=== PATIENT | female | born 1950 | race Caucasian/White ===

== ENCOUNTER 2021-02-08 15:38 | Emergency (ER) | payer MEDICARE, OTHER ==
[2021-02-08 16:07] VITALS: TEMP 97.5
[2021-02-08] MEDS ORDERED: IBUPROFEN 400 MG TAB PO STA ×2 (16:47→17:31)
[2021-02-08] MEDS ORDERED: IBUPROFEN 600 MG TAB PO STA (17:28)
[2021-02-08 17:36] VITALS: RESP 16
[2021-02-08 17:42] LABS: INR 1.1 (<1.2); Partial Thromboplastin Time 24.3 sec (22.0-30.0); Prothrombin Time 11.4 sec (9.0-12.0)
--- NOTE | 2021-02-08 17:45 | ED ---
Chest Pain HPI - General Chief Complaint: Back Pain/Injury Stated Complaint: chest pain Source: patient, EMS Mode of arrival: EMS Limitations: no limitations - History of Present Illness Initial Comments: 70-year-old female presents to the emergency department after she was complaining of chest pain and back pain while getting dialysis. Daughter is at bedside and provides the history. She states that her mother has a significant history of dementia. She has dialysis Thursday, Thursday and Fridays. Patient will frequently complain of diffuse body aches while receiving her dialysis. They have been attempting to adjust the patient's dialysis treatments in order to make her pain was severe. Today they were going to attempt to take less fluid off of the patient. The patient got 10 minutes into her session and began complaining of back pain and chest pain. They transferred the patient to the hospital because of these complaints. Daughter states that the patient has been suffering from some low pressure. She does take medications for hypertension. She was instructed to only take half doses at this time and no blood pressure medications on the day that she receives dialysis. Patient does not take any blood pressure medications today. If she does come in to the emergency department with low oxygen saturation, 84% on room air as well as blood pressure reading of 93/55. Patient has no complaints at this time other than her low back pain. She is requesting ibuprofen. Patient does have a history of IA with stent placement in 2008. No fevers, chills or cough. Remainder of HPI is limited due to the patient's advanced dementia - Related Data Home Medications Medication Instructions Recorded Confirmed Aspirin EC [Ecotrin Low Dose] 81 mg PO DAILY 02/08/21 02/08/21 Atorvastatin Calcium [Lipitor] 10 mg PO DAILY 02/08/21 02/08/21 Carvedilol [Coreg] 6.25 mg PO BID 02/08/21 02/08/21 Clopidogrel [Plavix] 75 mg PO DAILY 02/08/21 02/08/21 Donepezil HCl [Aricept] 10 mg PO DAILY 02/08/21 02/08/21 INSULIN LISPRO (HumaLOG) [humaLOG] See Protocol SQ TID-W/MEALS 02/08/21 02/08/21 Insulin Glargine [Lantus Vial] 14 unit SQ HS 02/08/21 02/08/21 Levothyroxine Sodium [Synthroid] 100 mcg PO DAILY 02/08/21 02/08/21 Memantine [Namenda] 10 mg PO BID 02/08/21 02/08/21 Phoslyra 667 Mg/5 Ml Solution 1,334 mg PO TID-W/MEALS 02/08/21 02/08/21 Aide-Sheldon 1 tab PO DAILY 02/08/21 02/08/21 Sevelamer Carbonate 1 packet PO TID-W/MEALS 02/08/21 02/08/21 amLODIPine [Norvasc] 10 mg PO DAILY 02/08/21 02/08/21 lisinopriL 40 mg PO DAILY 02/08/21 02/08/21 Allergies Allergy/AdvReac Type Severity Reaction Status Date / Time Penicillins Allergy Rash/Hives Verified 02/08/21 17:43 Review of Systems ROS Statement: Those systems with pertinent positive or pertinent negative responses have been documented in the HPI. ROS Other: All systems not noted in ROS Statement are negative. EKG Findings - EKG Comments: EKG Findings:: EKG demonstrates sinus rhythm with occasional PVCs. Rate of 81. MD interval 190. QRS 86. QTC 448. Baseline artifact. No acute ST segment elevations Past Medical History Past Medical History: Dementia, Diabetes Mellitus, Dialysis, Hyperlipidemia, Hypertension, Myocardial Infarction ([place]), Thyroid Disorder Additional Past Medical History / Comment(s): UTI, Mon, Wed, Thu Dialysis, [place] in 1993, heart murmur, DM type 2, hypothyroidism, End stage renal failure History of Any Multi-Drug Resistant Organisms: None Reported Past Surgical History: Appendectomy, Cholecystectomy, Heart Catheterization With Stent, Tubal Ligation Additional Past Surgical History / Comment(s): last stent 2008, carpal tunal x2, loop recorder Past Psychological History: Anxiety Smoking Status: Never smoker Past Alcohol Use History: None Reported Past Drug Use History: None Reported General Exam Limitations: no limitations Course Vital Signs 02/08/21 02/08/21 02/08/21 15:53 16:08 16:56 Temperature 97.5 F L Pulse Rate 87 84 Respiratory 18 18 Rate Blood Pressure 93/55 104/67 O2 Sat by Pulse 84 L 97 97 Oximetry 02/08/21 02/08/21 17:34 20:08 Temperature Pulse Rate 86 81 Respiratory 16 16 Rate Blood Pressure 107/57 109/58 O2 Sat by Pulse 98 84 L Oximetry Chest Pain MDM - MDM Upon arrival patient was placed into room 25. A thorough history and physical exam was performed. Patient is requesting ibuprofen for she is given 600 mg dose. I did request laboratory studies and a chest x-ray because of the patient's hypoxia. Laboratory studies reveal a creatinine of 4.07. Troponin is 0.738. BNP 235,000. Chest x-ray does demonstrate left and mild right effusion with adjacent atelectasis/airspace disease. Interstitial edema. I did discuss the diagnosis, differential and treatment options. I did recommend hospitalization for nephrology consultation and cardiology consultation. Daughter states that she would like to take her mother home at this time. States that due to her history of advanced dementia she does not tolerate hospitalization. I discussed the risks of leaving including permanent disability and because of elevated cardiac enzyme. Daughter is aware of these risks and is the POA for the patient. The patient does still make some urine. I recommended giving her 60 mg of Lasix IV for diuresis. They must follow-up with dialysis and have dialysis completed tomorrow as the patient did miss her session today. Daughter states that she works closely with the dialysis nurse and does believe that this would be feasible. I instructed her that if she has any new or worsening symptoms or they do agree to be hospitalized that they need to return to the emergency room. Daughter agreed to this plan of patient was discharged home in stable condition Disposition Clinical Impression: Hypoxia, Back pain, ESRD (end stage renal disease) on dialysis, Pulmonary edema Disposition: HOME SELF-CARE Condition: Stable Instructions (If sedation given, give patient instructions): Pulmonary Edema (ED) Additional Instructions: Please call the dialysis center and arranged to have your dialysis done tomorrow. If you have any difficulties, please return to the emergency department. Take the urine sample in to get tested for UTI. Return to the ED for any new or worsening symptoms. Is patient prescribed a controlled substance at d/c from ED?: No Referrals: Chantale Hudson MD [Primary Care Provider] - 1-2 days Nancy Duffy MD [STAFF PHYSICIAN] - 1-2 days Time of Disposition: 19:38
[2021-02-08 17:47] LABS: Albumin 3.8 g/dL (3.5-5.0); Calcium 8.9 mg/dL (8.4-10.2); Magnesium 2.2 mg/dL (1.6-2.3); Phosphorus 3.2 mg/dL (2.5-4.5); Potassium 3.8 mmol/L (3.5-5.1); Total Bilirubin 0.8 mg/dL (0.2-1.3); Total Protein 6.4 g/dL (6.3-8.2)
[2021-02-08 17:55] LABS: Basophils % (A) 0 %; Eosinophils # (A) 0.1 k/uL (0-0.7); Eosinophils % (A) 1 %; HCT 33.9 % (34.0-46.0); HGB 11.1 gm/dL (11.4-16.0); Lymphocytes # (A) 0.6 k/uL (1.0-4.8); Lymphocytes % (A) 6 %; MCH 34.6 pg (25.0-35.0); MCHC 32.9 g/dL (31.0-37.0); MCV 105.4 fL (80.0-100.0); Macrocytosis Moderate; Monocytes # (A) 0.3 k/uL (0-1.0); Monocytes % (A) 3 %; Neutrophils # (A) 8.9 k/uL (1.3-7.7); Neutrophils % (A) 90 %; Platelet Count 185 k/uL (150-450); Poikilocytosis Slight; RBC 3.21 m/uL (3.80-5.40); RDW 15.5 % (11.5-15.5); WBC 9.9 k/uL (3.8-10.6)
--- NOTE | 2021-02-08 18:38 | XR ---
EXAMINATION TYPE: XR chest 2V DATE OF EXAM: 02/08/2021 COMPARISON: NONE HISTORY: Shortness of breath TECHNIQUE: Frontal and lateral views of the chest are obtained. FINDINGS: The cardiomediastinal silhouette is partially obscured. Loop recorder device. The pulmonary vasculatu re is indistinct. There is increased interstitial opacity bilaterally. There is moderate left and mild right effusion with adjacent atelectasis/airspace disease. IMPRESSION: Left and mild right effusion with adjacent atelectasis/airspace disease. Interstitial ed [place].
[2021-02-08] MEDS ORDERED: FUROSEMIDE 10 MG/ML 4 ML VIAL IV STA (19:36)
[2021-02-08 20:09] VITALS: BP 109/58; PULSE 81
== END 2021-02-08 20:05 | disposition home or self-care (01) ==
LOC: EC 15:38
DX: R09.02 Hypoxemia (principal); M54.9 Dorsalgia, unspecified; E11.22 Type 2 diabetes mellitus with diabetic chronic kidney disease; I12.0 Hypertensive chronic kidney disease with stage 5 chronic kidney disease or end stage renal disease; N18.6 End stage renal disease; J81.1 Chronic pulmonary edema; E78.5 Hyperlipidemia, unspecified; I25.2 Old myocardial infarction; E03.9 Hypothyroidism, unspecified; F41.9 Anxiety disorder, unspecified; Z79.82 Long term (current) use of aspirin; Z99.2 Dependence on renal dialysis; Z79.4 Long term (current) use of insulin; Z79.899 Other long term (current) drug therapy
CPT/HCPCS: 36415; 93005; 83880; 80053; 82550; 83605; 83735; 84100; 84484; 85025; 85610; 85730; 71046; 99285; 96374; J1940

== ENCOUNTER 2021-02-09 03:02 | Emergency (ER) | payer MEDICARE, OTHER ==
[2021-02-09 03:10] VITALS: TEMP 98.3
[2021-02-09 04:17] LABS: Basophils % (A) 0 %; Eosinophils # (A) 0.1 k/uL (0-0.7); Eosinophils % (A) 1 %; HCT 34.8 % (34.0-46.0); HGB 10.8 gm/dL (11.4-16.0); Hypochromasia Moderate; Lymphocytes # (A) 0.5 k/uL (1.0-4.8); Lymphocytes % (A) 6 %; MCH 34.2 pg (25.0-35.0); MCHC 31.2 g/dL (31.0-37.0); MCV 109.7 fL (80.0-100.0); Macrocytosis Marked; Mean Platelet Volume 8.7; Monocytes # (A) 0.3 k/uL (0-1.0); Monocytes % (A) 4 %; Neutrophils # (A) 7.6 k/uL (1.3-7.7); Neutrophils % (A) 88 %; Platelet Count 146 k/uL (150-450); Poikilocytosis Slight; RBC 3.17 m/uL (3.80-5.40); WBC 8.6 k/uL (3.8-10.6)
[2021-02-09 04:45] LABS: INR 1.1 (<1.2); Partial Thromboplastin Time 26.6 sec (22.0-30.0); Prothrombin Time 11.8 sec (9.0-12.0)
--- NOTE | 2021-02-09 04:49 | XR ---
EXAMINATION TYPE: XR chest 1V portable DATE OF EXAM: 02/09/2021 COMPARISON: Yesterday HISTORY: Short of breath TECHNIQUE: Single view FINDINGS: There is moderate pulmonary airspace edema. There is blunting of the costophrenic angles. T here are chest leads. Thoracic aorta is atheromatous. Heart appears enlarged. IMPRESSION: Congestive heart failure with pulmonary edema and pleural fluid. Pulmonary edema appears slightly worse than yesterday.
[2021-02-09 05:03] VITALS: RESP 18
[2021-02-09] MEDS ORDERED: MORPHINE SULFATE 4 MG/ML SYRINGE IV STA (05:32)
[2021-02-09 06:19] LABS: Albumin 3.7 g/dL (3.5-5.0); Calcium 8.7 mg/dL (8.4-10.2); Potassium 4.1 mmol/L (3.5-5.1); Total Bilirubin 0.7 mg/dL (0.2-1.3); Total Protein 6.2 g/dL (6.3-8.2)
[2021-02-09] MEDS ORDERED: ACETAMINOPHEN TAB 325 MG TAB PO PRN (07:03)
[2021-02-09] MEDS ORDERED: NALOXONE 0.4 MG/ML 1 ML VIAL IV PRN (07:03)
[2021-02-09 07:17] VITALS: BP 101/62; PULSE 67
--- NOTE | 2021-02-09 08:11 | ED ---
Dizziness HPI - General Chief Complaint: Syncope Stated Complaint: UMESH Time Seen by Provider: 02/09/21 03:37 Source: patient, family Mode of arrival: wheelchair Limitations: altered mental status - History of Present Illness Initial Comments: This patient is a 70-year-old woman who is brought to have evaluation for shortness of breath. Please note that while the patient was being triaged she appears to have had a brief syncopal episode. The history is supplemented by the patient's family and it appears that the patient has been having difficulty with her last 2 dialysis sessions. The patient reportedly develops severe cramping or spasms shortly after being started on dialysis. At the session today the session was terminated after number of minutes due to these cramps or spasms. The prior session 2 days previous had apparently been stopped at about assisted through the session for the same symptoms. Patient denies chest pain. There is shortness of breath. No evident fever. No productive cough. MD Complaint: other -: hour(s) Timing: gradual onset Improves With: nothing Worsens With: position Associated Symptoms: shortness of breath - Related Data Home Medications Medication Instructions Recorded Confirmed Aspirin EC [Ecotrin Low Dose] 81 mg PO DAILY 02/08/21 02/09/21 Atorvastatin Calcium [Lipitor] 10 mg PO DAILY 02/08/21 02/09/21 Carvedilol [Coreg] 6.25 mg PO BID 02/08/21 02/09/21 Clopidogrel [Plavix] 75 mg PO DAILY 02/08/21 02/09/21 Donepezil HCl [Aricept] 10 mg PO DAILY 02/08/21 02/09/21 INSULIN LISPRO (HumaLOG) [humaLOG] See Protocol SQ AC-TID 02/08/21 02/09/21 Insulin Glargine [Lantus Vial] 14 unit SQ HS 02/08/21 02/09/21 Levothyroxine Sodium [Synthroid] 100 mcg PO DAILY 02/08/21 02/09/21 Memantine [Namenda] 10 mg PO BID 02/08/21 02/09/21 Phoslyra 667 Mg/5 Ml Solution 1,334 mg PO AC-TID 02/08/21 02/09/21 Aide-Sheldon 1 tab PO DAILY 02/08/21 02/09/21 Sevelamer Carbonate 1 packet PO AC-TID 02/08/21 02/09/21 amLODIPine [Norvasc] 10 mg PO DAILY 02/08/21 02/09/21 lisinopriL 40 mg PO DAILY 02/08/21 02/09/21 Allergies Allergy/AdvReac Type Severity Reaction Status Date / Time Penicillins Allergy Rash/Hives Verified 02/09/21 08:20 Review of Systems ROS Statement: Those systems with pertinent positive or pertinent negative responses have been documented in the HPI. ROS Other: All systems not noted in ROS Statement are negative. Constitutional: Reports: weakness. Denies: fever, chills Respiratory: Reports: dyspnea. Denies: cough, hemoptysis Cardiovascular: Reports: orthopnea, syncope. Denies: chest pain, edema Gastrointestinal: Reports: abdominal pain (Abdominal cramps during dialysis). Denies: vomiting, diarrhea Genitourinary: Denies: dysuria, hematuria Musculoskeletal: Reports: myalgia (Cramps during dialysis) Skin: Denies: rash Neurological: Reports: weakness. Denies: headache, numbness Past Medical History Past Medical History: Dementia, Diabetes Mellitus, Dialysis, Hyperlipidemia, Hypertension, Myocardial Infarction ([place]), Thyroid Disorder Additional Past Medical History / Comment(s): UTI, Mon, Wed, Fri Dialysis, [place] in 1993, heart murmur, DM type 2, hypothyroidism, End stage renal failure History of Any Multi-Drug Resistant Organisms: None Reported Past Surgical History: Appendectomy, Cholecystectomy, Heart Catheterization With Stent, Tubal Ligation Additional Past Surgical History / Comment(s): last stent 2008, carpal tunal x2, loop recorder Past Psychological History: Anxiety Smoking Status: Never smoker Past Alcohol Use History: None Reported Past Drug Use History: None Reported General Exam Limitations: altered mental status General appearance: alert, in no apparent distress Head exam: Present: atraumatic, normocephalic Eye exam: Present: normal appearance. Absent: scleral icterus, conjunctival injection Neck exam: Present: normal inspection, full ROM Respiratory exam: Present: rales. Absent: wheezes, rhonchi, stridor, accessory muscle use Cardiovascular Exam: Present: regular rate, normal rhythm, normal heart sounds. Absent: systolic murmur, diastolic murmur, rubs, gallop GI/Abdominal exam: Present: soft. Absent: distended, tenderness, guarding, rebound, rigid Extremities exam: Present: normal inspection, normal capillary refill. Absent: pedal edema, calf tenderness Back exam: Present: normal inspection Neurological exam: Present: alert Skin exam: Present: warm, dry, intact, normal color. Absent: rash Course Vital Signs 02/09/21 02/09/21 02/09/21 03:06 03:27 03:45 Temperature 98.3 F Pulse Rate 84 Pulse Rate [ 79 Wireless Technician ] Respiratory 16 18 Rate Blood Pressure 93/64 O2 Sat by Pulse 92 L 82 L Oximetry 02/09/21 02/09/21 02/09/21 03:59 05:01 05:35 Temperature Pulse Rate 73 70 76 Pulse Rate [ Wireless Technician ] Respiratory 22 18 18 Rate Blood Pressure 105/69 106/69 110/69 O2 Sat by Pulse 90 L 96 94 L Oximetry 02/09/21 07:05 Temperature Pulse Rate 67 Pulse Rate [ Wireless Technician ] Respiratory 18 Rate Blood Pressure 101/62 O2 Sat by Pulse 94 L Oximetry Medical Decision Making - Medical Decision Making Patient is 70-year-old woman here for shortness of breath and also having had a syncopal episode while in the triage area. Given that the patient's last 2 dialysis sessions had not been completed suspect there is component of volume overload and I did speak with the admitting physician about having patient admitted to dialyze here. Subsequently patient's family expressed interest in taking her directly to the dialysis Center to have a session there - Lab Data Result diagrams: 02/09/21 03:57 02/09/21 05:40 Lab Results 02/09/21 02/09/21 02/09/21 Range/Units 03:57 03:57 05:40 WBC 8.6 (3.8-10.6) k/uL RBC 3.17 L (3.80-5.40) m/uL Hgb 10.8 L (11.4-16.0) gm/dL Hct 34.8 (34.0-46.0) % MCV 109.7 H (80.0-100.0) fL MCH 34.2 (25.0-35.0) pg MCHC 31.2 (31.0-37.0) g/dL RDW 15.0 (11.5-15.5) % Plt Count 146 L (150-450) k/uL MPV 8.7 Neutrophils % 88 % Lymphocytes % 6 % Monocytes % 4 % Eosinophils % 1 % Basophils % 0 % Neutrophils # 7.6 (1.3-7.7) k/uL Lymphocytes # 0.5 L (1.0-4.8) k/uL Monocytes # 0.3 (0-1.0) k/uL Eosinophils # 0.1 (0-0.7) k/uL Basophils # 0.0 (0-0.2) k/uL Hypochromasia Moderate Poikilocytosis Slight Macrocytosis Marked A PT 11.8 (9.0-12.0) sec INR 1.1 (<1.2) APTT 26.6 (22.0-30.0) sec Sodium 133 L (137-145) mmol/L Potassium 4.1 (3.5-5.1) mmol/L Chloride 97 L (98-107) mmol/L Carbon Dioxide 24 (22-30) mmol/L Anion Gap 12 mmol/L BUN 32 H (7-17) mg/dL Creatinine 4.72 H (0.52-1.04) mg/dL Est GFR (CKD-EPI)AfAm 10 (>60 ml/min/1.73 sqM) Est GFR (CKD-EPI)NonAf 9 (>60 ml/min/1.73 sqM) Glucose 252 H (74-99) mg/dL Calcium 8.7 (8.4-10.2) mg/dL Total Bilirubin 0.7 (0.2-1.3) mg/dL AST 63 H (14-36) U/L ALT 43 H (4-34) U/L Alkaline Phosphatase 92 (38-126) U/L Troponin I (0.000-0.034) ng/mL Total Protein 6.2 L (6.3-8.2) g/dL Albumin 3.7 (3.5-5.0) g/dL 02/09/21 Range/Units 05:40 WBC (3.8-10.6) k/uL RBC (3.80-5.40) m/uL Hgb (11.4-16.0) gm/dL Hct (34.0-46.0) % MCV (80.0-100.0) fL MCH (25.0-35.0) pg MCHC (31.0-37.0) g/dL RDW (11.5-15.5) % Plt Count (150-450) k/uL MPV Neutrophils % % Lymphocytes % % Monocytes % % Eosinophils % % Basophils % % Neutrophils # (1.3-7.7) k/uL Lymphocytes # (1.0-4.8) k/uL Monocytes # (0-1.0) k/uL Eosinophils # (0-0.7) k/uL Basophils # (0-0.2) k/uL Hypochromasia Poikilocytosis Macrocytosis PT (9.0-12.0) sec INR (<1.2) APTT (22.0-30.0) sec Sodium (137-145) mmol/L Potassium (3.5-5.1) mmol/L Chloride (98-107) mmol/L Carbon Dioxide (22-30) mmol/L Anion Gap mmol/L BUN (7-17) mg/dL Creatinine (0.52-1.04) mg/dL Est GFR (CKD-EPI)AfAm (>60 ml/min/1.73 sqM) Est GFR (CKD-EPI)NonAf (>60 ml/min/1.73 sqM) Glucose (74-99) mg/dL Calcium (8.4-10.2) mg/dL Total Bilirubin (0.2-1.3) mg/dL AST (14-36) U/L ALT (4-34) U/L Alkaline Phosphatase (38-126) U/L Troponin I 0.665 H* (0.000-0.034) ng/mL Total Protein (6.3-8.2) g/dL Albumin (3.5-5.0) g/dL Disposition Clinical Impression: ESRD (end stage renal disease) on dialysis, Volume overload Disposition: OTHER INSTITUTION NOT DEFINED Condition: Undetermined Is patient prescribed a controlled substance at d/c from ED?: No Referrals: Chantale Hudson MD [Primary Care Provider] - 1-2 days - Out of Hospital Transfer - Req. Specs Out of Hospital Transfer - Requested Specifics: Other Non-Acute (Dialysis Center)
== END 2021-02-09 08:34 | disposition other institution (70) ==
LOC: EC 03:02 → 6NMEDSUR 07:52 → 3NCARDOBS 07:54 → 6NMEDSUR 08:00 → EC 08:34
DX: I12.0 Hypertensive chronic kidney disease with stage 5 chronic kidney disease or end stage renal disease (principal); E11.22 Type 2 diabetes mellitus with diabetic chronic kidney disease; N18.6 End stage renal disease; E87.70 Fluid overload, unspecified; F03.90 Unspecified dementia, unspecified severity, without behavioral disturbance, psychotic disturbance, mood disturbance, and anxiety; E78.5 Hyperlipidemia, unspecified; E07.9 Disorder of thyroid, unspecified; I25.2 Old myocardial infarction; F41.9 Anxiety disorder, unspecified; Z99.2 Dependence on renal dialysis; Z79.82 Long term (current) use of aspirin; Z79.02 Long term (current) use of antithrombotics/antiplatelets; Z79.4 Long term (current) use of insulin; Z88.0 Allergy status to penicillin; Z87.440 Personal history of urinary (tract) infections; Z90.49 Acquired absence of other specified parts of digestive tract; Z98.51 Tubal ligation status
CPT/HCPCS: 99285; 96374; 36415; 93005; 80053; 84484; 85025; 85610; 85730; 71045; J2270